=== PATIENT | male | born 1970 | race Hispanic/Latino ===

== ENCOUNTER 2020-11-24 14:48 | Emergency (ER) | payer SELFPAY ==
[2020-12-02] MEDS ORDERED: CLIN-141 PO (10:19)
== END 2020-11-24 15:57 | disposition home or self-care (01) ==
LOC: EDH 14:48
DX: M25.522 Pain in left elbow (principal); Z87.891 Personal history of nicotine dependence; M79.89 Other specified soft tissue disorders
CPT/HCPCS: 73080

== ENCOUNTER 2020-11-28 16:33 | Inpatient (IN) | payer OTHER ==
[2020-11-28 17:06] LABS: BASOPHILS % (AUTO) 0.9 % (0.0-5.0); EOSINOPHILS % (AUTO) 1.1 % (0.0-8.0); HEMATOCRIT 35.8 % (42-54); LYMPHOCYTES % (AUTO) 18.2 % (21.0-51.0); MEAN CORPUSCULAR HEMOGLOBIN 30.5 pg (27.0-33.0); MEAN CORPUSCULAR HGB CONC 34.6 g/dL (32.0-36.0); MEAN CORPUSCULAR VOLUME 88.2 fL (79-99); MONOCYTES % (AUTO) 6.8 % (3.0-13.0); NEUTROPHILS % (AUTO) 72.8 % (40.0-77.0); PLATELET COUNT (AUTO) 348 K/uL (130-400); RED BLOOD CELL COUNT(AUTO) 4.06 MIL/uL (4.50-6.20)
[2020-11-28 17:19] LABS: ALBUMIN 3.4 g/dL (3.5-5.0); BILIRUBIN,TOTAL 0.4 mg/dL (0.2-1.0); CREATININE 1.1 mg/dL (0.5-1.5); POTASSIUM 3.6 mmol/L (3.5-5.1); TOTAL PROTEIN, SERUM 8.2 g/dL (6.0-8.3)
[2020-11-28] MEDS ORDERED: INSULIN HUMULIN R 100 UNIT/ML 3ML ONE (21:48)
[2020-11-28] MEDS ORDERED: VANCOMYCIN 1GM+NS 250ML 250 ML IV ONE (21:50)
[2020-11-28] MEDS ORDERED: ZOSYN 3.375GM+NS 50ML 50 ML IV ONE (21:50)
[2020-11-28 21:54] LABS: ABG BASE EXCESS -0.5 mmol/L (-2.0-3.0); ABG HCO3 22.6 mmol/L (21.0-28.0); ABG OXYGEN SATURATION 97.6 % (95.0-99.0); ABG PCO2 33 mmHg (35-48)
[2020-11-28 22:06] LABS: CRP QUANTITATIVE 126.6 mg/L (0.00-9.0)
[2020-11-28] MEDS ORDERED: CLINDAMYCIN 600 MG/D5% WATER 50 ML IV SCH (23:15)
[2020-11-28] MEDS ORDERED: INSULIN GLARGINE 100 UNITS/ML 10 ML VIAL SQ SCH (23:15)
[2020-11-28] MEDS ORDERED: MORPHINE SULFATE 2 MG/ML 1ML SYG IV PRN (23:15)
[2020-11-28] MEDS ORDERED: INSULIN HUMULIN R 100 UNIT/ML 3ML SQ SCH (23:15)
[2020-11-28] MEDS ORDERED: DEXTROSE 50%-WATER 50 ML DISP.SYRIN IV PRN (23:15)
[2020-11-28] MEDS ORDERED: MORPHINE SULFATE 4 MG/1ML SYG IV PRN (23:15)
[2020-11-28] MEDS ORDERED: LACTATED RINGERS 1000ML 1,000 ML IV SCH (23:15)
[2020-11-28] MEDS ORDERED: GLUCAGON 1MG KIT 1 MG ML IM PRN (23:15)
[2020-11-28] MEDS ORDERED: PHARMACY COMMUNICATION MISC SCH (23:45)
[2020-11-29 00:12] LABS: HEMOGLOBIN A1C 11.4 % (4.0-6.0)
[2020-11-29] MEDS ORDERED: ZOSYN 3.375GM+NS 50ML 50 ML IV SCH (05:00)
[2020-11-29] MEDS ORDERED: INSULIN HUMULIN R 100 UNIT/ML 3ML SQ SCH (07:30)
[2020-11-30] MEDS ORDERED: CEPH500C2 PO (04:13)
[2020-11-30] MEDS ORDERED: ACET-2743 PO (04:13)
== END 2020-11-29 00:07 | disposition left against medical advice (07) | DRG 603 ==
LOC: EDH 16:33 → EDHIP 16:34
PROVIDERS: ADMIT Family Medicine; ATTEND Family Medicine
DX: L03.114 Cellulitis of left upper limb (principal); E11.9 Type 2 diabetes mellitus without complications; M70.32 Other bursitis of elbow, left elbow; Z53.29 Procedure and treatment not carried out because of patient's decision for other reasons
CPT/HCPCS: 36415; 36600; 73090; 80053; 82010; 82803; 83036; 83605; 85025; 85651; 86140; G0378; J1815; J2543; J3370

== ENCOUNTER 2020-11-29 11:24 | Inpatient (IN) | payer SELFPAY ==
[~2020-11-29] VITALS: Ht 165.1 cm; Wt 68.9 kg
[2020-11-29] MEDS ORDERED: ZOSYN 3.375GM+NS 50ML 50 ML IV ONE ×2 (13:26→19:33)
[2020-11-29] MEDS: SODIUM CHLORIDE 0.9% 1000ML 1,000 ML IV SCH ×2 (13:45→23:45)
[2020-11-29] MEDS ORDERED: ACETAMINOPHEN 325 MG TAB PO PRN (13:45)
[2020-11-29] MEDS ORDERED: ONDANSETRON HCL 4 MG/2 ML VIAL IV PRN (13:45)
[2020-11-29] MEDS ORDERED: VANCOMYCIN 1GM+NS 250ML 250 ML IV SCH (13:45)
[2020-11-29] MEDS ORDERED: MORPHINE SULFATE 2 MG/ML 1ML SYG IV PRN (13:45)
[2020-11-29] MEDS ORDERED: LACTULOSE 20 GM/30 ML UDCUP PO PRN (13:45)
[2020-11-29] MEDS ORDERED: CEFTRIAXONE SODIUM 1 GM ONE (15:49)
[2020-11-29] MEDS: INSULIN HUMULIN R 100 UNIT/ML 3ML SQ SCH ×2 (16:30→21:00)
[2020-11-29] MEDS ORDERED: INSULIN GLARGINE 100 UNITS/ML 10 ML VIAL SQ SCH (18:15)
[2020-11-29] MEDS ORDERED: SODIUM CHLORIDE 0.9% 1000ML 1,000 ML IV ONE (18:37)
[2020-11-29] MEDS ORDERED: INSULIN HUMULIN R 100 UNIT/ML 3ML ONE (18:44)
[2020-11-29] MEDS: FAMOTIDINE 20MG TAB 20 MG TAB PO SCH (21:00)
[2020-11-29] MEDS: ZOSYN 3.375GM+NS 50ML 50 ML IV SCH (21:00)
[2020-11-30 03:50] VITALS: BP 145/76
[2020-11-30] MEDS ORDERED: ACET-2743 PO (04:13)
[2020-11-30] MEDS ORDERED: CEPH500C2 PO (04:13)
[2020-11-30] MEDS: ZOSYN 3.375GM+NS 50ML 50 ML IV SCH ×2 (05:37→12:45)
[2020-11-30] MEDS: INSULIN HUMULIN R 100 UNIT/ML 3ML SQ SCH ×7 (05:44→20:14)
[2020-11-30] MEDS: ACETAMINOPHEN 325 MG TAB PO PRN ×2 (06:08→18:05)
[2020-11-30 06:57] LABS: BASOPHILS % (AUTO) 0.6 % (0.0-5.0); EOSINOPHILS % (AUTO) 1.6 % (0.0-8.0); HEMATOCRIT 33.6 % (42-54); LYMPHOCYTES % (AUTO) 20.5 % (21.0-51.0); MEAN CORPUSCULAR HEMOGLOBIN 30.6 pg (27.0-33.0); MEAN CORPUSCULAR HGB CONC 34.8 g/dL (32.0-36.0); MONOCYTES % (AUTO) 8.7 % (3.0-13.0); NEUTROPHILS % (AUTO) 68.3 % (40.0-77.0); PLATELET COUNT (AUTO) 324 K/uL (130-400); RED BLOOD CELL COUNT(AUTO) 3.82 MIL/uL (4.50-6.20); RED CELL DISTRIBUTION WIDTH 11.9 % (11.0-15.5); WHITE BLOOD COUNT (AUTO) 9.3 K/uL (4.8-10.8)
[2020-11-30 07:07] LABS: HEMOGLOBIN A1C 12.1 % (4.0-6.0)
[2020-11-30 07:09] LABS: CREATININE 0.7 mg/dL (0.5-1.5); CRP QUANTITATIVE 111.6 mg/L (0.00-9.0); POTASSIUM 3.8 mmol/L (3.5-5.1)
[2020-11-30] MEDS: SODIUM CHLORIDE 0.9% 1000ML 1,000 ML IV SCH ×2 (07:19→20:14)
[2020-11-30 08:13] VITALS: BP 103/70
[2020-11-30] MEDS: ENOXAPARIN SODIUM 40 MG/0.4 ML SYRINGE SQ SCH (10:24)
[2020-11-30] MEDS: FAMOTIDINE 20MG TAB 20 MG TAB PO SCH ×2 (10:24→20:07)
[2020-11-30 11:45] VITALS: BP 93/44
[2020-11-30] MEDS ORDERED: VANCOMYCIN PROTOCOL PER PHARMACY IV SCH (14:15)
[2020-11-30] MEDS ORDERED: COMPOUND IV REFRIGERATED 1 EACH IVSOLN MISC PRN (15:30)
[2020-11-30] MEDS ORDERED: VANCOMYCIN 1.5 GM in SODIUM CHLORIDE 0.9% 250 ML IV ONE (16:00)
[2020-11-30] MEDS: CEFAZOLIN SODIUM 1 GM VIAL IVP SCH ×2 (16:13→21:45)
[2020-11-30 16:19] VITALS: BP 96/43
[2020-11-30 19:55] VITALS: BP 108/66
[2020-11-30] MEDS ORDERED: INSULIN GLARGINE 100 UNITS/ML 10 ML VIAL SQ SCH (21:00)
[2020-11-30 23:18] VITALS: BP 131/70
[2020-12-01] MEDS: VANCOMYCIN 1GM+NS 250ML 250 ML IV SCH ×4 (00:03→23:40)
[2020-12-01] MEDS: SODIUM CHLORIDE 0.9% 1000ML 1,000 ML IV SCH ×3 (00:05→23:40)
[2020-12-01 03:35] VITALS: BP 128/75
[2020-12-01] MEDS: ACETAMINOPHEN 325 MG TAB PO PRN ×2 (03:54→20:20)
[2020-12-01] MEDS: CEFAZOLIN SODIUM 1 GM VIAL IVP SCH ×3 (06:12→20:20)
[2020-12-01] MEDS: INSULIN HUMULIN R 100 UNIT/ML 3ML SQ SCH ×7 (06:13→20:23)
[2020-12-01 07:30] VITALS: BP 156/91
[2020-12-01] MEDS: FAMOTIDINE 20MG TAB 20 MG TAB PO SCH ×2 (08:55→20:17)
[2020-12-01] MEDS: ENOXAPARIN SODIUM 40 MG/0.4 ML SYRINGE SQ SCH (08:56)
[2020-12-01 10:38] LABS: BASOPHILS % (AUTO) 0.7 % (0.0-5.0); EOSINOPHILS % (AUTO) 1.1 % (0.0-8.0); HEMATOCRIT 33.1 % (42-54); LYMPHOCYTES % (AUTO) 20.8 % (21.0-51.0); MEAN CORPUSCULAR HEMOGLOBIN 30.1 pg (27.0-33.0); MEAN CORPUSCULAR HGB CONC 33.8 g/dL (32.0-36.0); MONOCYTES % (AUTO) 8.7 % (3.0-13.0); NEUTROPHILS % (AUTO) 68.3 % (40.0-77.0); PLATELET COUNT (AUTO) 330 K/uL (130-400); RED BLOOD CELL COUNT(AUTO) 3.72 MIL/uL (4.50-6.20); RED CELL DISTRIBUTION WIDTH 11.9 % (11.0-15.5)
[2020-12-01 10:51] LABS: ALBUMIN 2.5 g/dL (3.5-5.0); BILIRUBIN,TOTAL 0.3 mg/dL (0.2-1.0); CREATININE 0.8 mg/dL (0.5-1.5); CRP QUANTITATIVE 80.2 mg/L (0.00-9.0); POTASSIUM 3.4 mmol/L (3.5-5.1); TOTAL PROTEIN, SERUM 6.6 g/dL (6.0-8.3)
[2020-12-01 11:00] VITALS: BP 125/67
[2020-12-01 11:58] LABS: ERYTHROCYTE SEDIMENTATION RATE 67 MM/HR (0-20)
[2020-12-01 15:56] VITALS: BP 133/70
[2020-12-01 19:51] VITALS: BP 148/77
[2020-12-01] MEDS ORDERED: INSULIN GLARGINE 100 UNITS/ML 10 ML VIAL SQ SCH (21:00)
[2020-12-01 23:38] VITALS: BP 143/78
[2020-12-02 03:54] VITALS: BP 139/77
[2020-12-02] MEDS: CEFAZOLIN SODIUM 1 GM VIAL IVP SCH (05:26)
[2020-12-02] MEDS: ACETAMINOPHEN 325 MG TAB PO PRN (05:27)
[2020-12-02] MEDS: INSULIN HUMULIN R 100 UNIT/ML 3ML SQ SCH ×4 (06:10→11:30)
[2020-12-02 07:30] VITALS: BP 131/75
[2020-12-02] MEDS: FAMOTIDINE 20MG TAB 20 MG TAB PO SCH (09:02)
[2020-12-02] MEDS: ENOXAPARIN SODIUM 40 MG/0.4 ML SYRINGE SQ SCH (09:02)
[2020-12-02] MEDS: VANCOMYCIN 1GM+NS 250ML 250 ML IV SCH (09:02)
[2020-12-02] MEDS ORDERED: CLINDAMYCIN 300 MG/D5W 50 ML 50 ML IV SCH (10:15)
[2020-12-02] MEDS ORDERED: CLIN300C10 PO (10:19)
[2020-12-02 11:00] VITALS: BP 128/70
[2020-12-02] MEDS: SODIUM CHLORIDE 0.9% 1000ML 1,000 ML IV SCH (11:45)
[2020-12-02] MEDS ORDERED: VANCOMYCIN 2 GM in SODIUM CHLORIDE 0.9% 500ML 500 ML IV SCH (14:00)
[2020-12-02] MEDS ORDERED: VANCOMYCIN 1GM+NS 250ML 250 ML IV SCH (22:00)
== END 2020-12-02 15:30 | disposition home or self-care (01) | DRG 603 ==
LOC: EDH 11:24 → EDHIP 11:25 → UNDOADMIN 13:40 → EDHIP 13:40 → 3CH 11-30 03:06
PROVIDERS: ADMIT Internal Medicine; ATTEND Internal Medicine
DX: L03.114 Cellulitis of left upper limb (principal); E11.65 Type 2 diabetes mellitus with hyperglycemia
CPT/HCPCS: 36415; 73200; 80048; 80053; 80202; 82948; 83036; 84145; 85025; 85651; 86140; 93931; 93971; G0378; J0690; J0696; J1650; J1815; J2543; J3370; J3490; J7030; J7040; J7050